=== PATIENT | female | born 1960 | race Caucasian/White ===

== ENCOUNTER → 2018-03-11 08:47 | Outpatient (CLI) | payer BC, SELFPAY ==
--- NOTE | 2018-03-11 08:49 | BI_ITS ---
MAMMOGRAPHY - BILATERAL SCREENING REASON FOR EXAM: Female, 57 years old. Routine annual screening examination. PERTINENT HISTORY: Non-contributory. TECHNIQUE: Digital bilateral breast brandon (3D mammographic acquisition) in the CC and MLO projections. 2-D mediolateral oblique (MLO) and craniocaudad (CC) views of both breasts were obtained. CAD: Full Field Digital Mammography with Computer Added Detection was performed. COMPARISON: Comparison is made with prior outside examination dated February 05, 2017. FINDINGS: Breast Composition: There are scattered areas of fibroglandular density. There are no dominant masses or suspicious calcifications. No other significant abnormalities are identified. There has been no significant change since the prior study. BI/SCREENING MAMM (CAD), BILAT IMPRESSION: Stable bilateral screening mammogram. Yearly follow-up mammogram recommended. (A) ASSESSMENT CATEGORY: BIRADS Category 1: Negative. A letter regarding these results will be sent to the patient by the facility within 30 days. Approximately 10% of breast cancers are not detected by mammography. A normal mammogram should not delay biopsy of a clinically suspicious abnormality. [id number] Electronically Signed: Marek Hagan MD at 9:50 EDT Tel [phone], Service support ,
[2018-03-16 14:18] LABS: HPV APTIMA, High Risk Negative (Negative)
== END ==
PROVIDERS: Family Provider Family Medicine; PCP Family Medicine; Visit Provider Nurse Practitioner Women's Health
DX: Z12.31 Encounter for screening mammogram for malignant neoplasm of breast (principal); Z12.4 Encounter for screening for malignant neoplasm of cervix
CPT/HCPCS: 77063; 77067; 88175; G0145

== ENCOUNTER → 2019-03-17 09:20 | Outpatient (CLI) | payer BC, SELFPAY ==
[2019-03-17 09:03] VITALS: BMI 27.4
--- NOTE | 2019-03-17 09:28 | BI_ITS ---
MAMMOGRAPHY - BILATERAL SCREENING REASON FOR EXAM: Female, 58 years old. Routine annual screening examination. PERTINENT HISTORY: Non-contributory. TECHNIQUE: Digital bilateral breast maria esther (3D mammographic acquisition) in the CC and MLO projections. 2-D mediolateral oblique (MLO) and craniocaudad (CC) views of both breasts were obtained. CAD: Full Field Digital Mammography with Computer Added Detection was performed. COMPARISON: Comparison is made with prior study dated March 11, 2018. FINDINGS: Breast Composition: There are scattered areas of fibroglandular density. There are no dominant masses or suspicious calcifications. Stable small bilateral axillary lymph nodes. No other significant abnormalities are identified. There has been no significant change since the prior study. BI/SCREEN MAMM (CAD) W/MARIA ESTHER BILAT IMPRESSION: Stable bilateral screening mammogram. Yearly follow-up mammogram recommended. (A) ASSESSMENT CATEGORY: BIRADS Category 2: Benign. A letter regarding these results will be sent to the patient by the facility within 30 days. Approximately 10% of breast cancers are not detected by mammography. A normal mammogram should not delay biopsy of a clinically suspicious abnormality. [id number] Electronically Signed: Marek Hagan, at 11:22 EDT , Service support ,
== END ==
PROVIDERS: Family Provider Family Medicine; PCP Family Medicine; Referring Provider Nurse Practitioner Women's Health; Visit Provider Nurse Practitioner Women's Health
DX: Z12.31 Encounter for screening mammogram for malignant neoplasm of breast (principal)
CPT/HCPCS: 77063; 77067

== ENCOUNTER → 2020-04-26 07:32 | Outpatient (CLI) | payer BC, SELFPAY ==
[2019-03-17 09:03] VITALS: BMI 27.4
--- NOTE | 2020-04-26 07:32 | BI_ITS ---
MAMMOGRAPHY - BILATERAL SCREENING REASON FOR EXAM: Female, 59 years old. Routine annual screening examination. PERTINENT HISTORY: Non-contributory. TECHNIQUE: Digital bilateral breast maria esther (3D mammographic acquisition) in the CC and MLO projections. 2-D mediolateral oblique (MLO) and craniocaudad (CC) views of both breasts were obtained. CAD: Full Field Digital Mammography with Computer Added Detection was performed. COMPARISON: Comparison is made with prior examination dated March 19, 2019 and March 11, 2018. FINDINGS: Breast Composition: There are scattered areas of fibroglandular density. There are no dominant masses or suspicious calcifications. Stable benign-appearing bilateral axillary lymph nodes. No other significant abnormalities are identified. There has been no significant change since the prior study. BI/SCREEN MAMM (CAD) W/MARIA ESTHER BILAT IMPRESSION: Stable bilateral screening mammogram. Yearly follow-up mammogram recommended. (A) ASSESSMENT CATEGORY: BIRADS Category 2: Benign. A letter regarding these results will be sent to the patient by the facility within 30 days. Approximately 10% of breast cancers are not detected by mammography. A normal mammogram should not delay biopsy of a clinically suspicious abnormality. [id number] Electronically Signed: Marek Hagan, at 8:25 EDT , Service support ,
== END ==
PROVIDERS: PCP Family Medicine; Referring Provider Nurse Practitioner Women's Health; Visit Provider Nurse Practitioner Women's Health
DX: Z12.31 Encounter for screening mammogram for malignant neoplasm of breast (principal)
CPT/HCPCS: 77063; 77067

== ENCOUNTER → 2021-04-30 07:31 | Outpatient (CLI) | payer BC, SELFPAY ==
[2020-04-26 08:20] VITALS: BMI 27.4
--- NOTE | 2021-04-30 07:33 | BI_ITS ---
MAMMOGRAPHY - BILATERAL SCREENING REASON FOR EXAM: Female, 60 years old. Routine annual screening examination. PERTINENT HISTORY: Non-contributory. TECHNIQUE: Digital bilateral breast maria esther (3D mammographic acquisition) in the CC and MLO projections. 2-D mediolateral oblique (MLO) and craniocaudad (CC) views of both breasts were obtained. CAD: Full Field Digital Mammography with Computer Added Detection was performed. COMPARISON: Comparison is made with prior study dated 04/26/2020 and 03/17/2019. FINDINGS: Breast Composition: There are scattered areas of fibroglandular density. There are no dominant masses or suspicious calcifications. Stable small benign-appearing bilateral axillary lymph nodes. No other significant abnormalities are identified. There has been no significant change since the prior study. BI/SCRN MAMM (CAD)W/MARIA ESTHER BILAT IMPRESSION: Stable bilateral screening mammogram. Yearly follow-up mammogram recommended. (A) ASSESSMENT CATEGORY: BIRADS Category 2: Benign. A letter regarding these results will be sent to the patient by the facility within 30 days. Approximately 10% of breast cancers are not detected by mammography. A normal mammogram should not delay biopsy of a clinically suspicious abnormality. [id number] Electronically Signed: Marek Hagan MD at 9:34 EDT , Service support ,
== END ==
PROVIDERS: PCP Family Medicine; Referring Provider Nurse Practitioner Women's Health; Visit Provider Nurse Practitioner Women's Health
DX: Z12.31 Encounter for screening mammogram for malignant neoplasm of breast (principal)
CPT/HCPCS: 77063; 77067

== ENCOUNTER → 2022-05-19 | Outpatient (CLI) | payer BC, SELFPAY ==
--- NOTE | 2022-05-19 07:26 | BI_ITS ---
MAMMOGRAPHY - BILATERAL SCREENING REASON FOR EXAM: Female, 62 years old. Routine annual screening examination. PERTINENT HISTORY: Non-contributory. TECHNIQUE: Digital bilateral breast maria esther (3D mammographic acquisition) in the CC and MLO projections. 2-D mediolateral oblique (MLO) and craniocaudad (CC) views of both breasts were obtained. CAD: Full Field Digital Mammography with Computer Added Detection was performed. COMPARISON: Comparison is made with prior study dated 04/30/2021 and 04/26/2020. FINDINGS: Breast Composition: There are scattered areas of fibroglandular density. There are no dominant masses or suspicious calcifications. Stable small benign-appearing bilateral axillary lymph nodes. No other significant abnormalities are identified. There has been no significant change since the prior study. BI/SCRN MAMM (CAD)W/MARIA ESTHER BILAT IMPRESSION: Stable bilateral screening mammogram. Yearly follow-up mammogram recommended. (A) ASSESSMENT CATEGORY: BIRADS Category 2: Benign. A letter regarding these results will be sent to the patient by the facility within 30 days. Approximately 10% of breast cancers are not detected by mammography. A normal mammogram should not delay biopsy of a clinically suspicious abnormality. [id number] Electronically Signed: Marek Hagan MD at 8:32 EDT ,
[2022-05-19 09:33] LABS: Cholesterol 201 mg/dL (200); Glucose 89 mg/dL (74-106); High Density Lipoprotein 73 mg/dL; Thyroid Stim Hormone (TSH) 2.11 uIU/mL (0.358-3.74); Triglycerides 97 mg/dL; Very Low Density Lipoprotein 19 mg/dL (5-40)
[2022-05-19 10:14] LABS: Vitamin D,25 Hydroxy 27.8 ng/mL
== END | disposition home or self-care (01) ==
PROVIDERS: Referring Provider Nurse Practitioner Women's Health; Visit Provider Nurse Practitioner Women's Health
DX: Z12.31 Encounter for screening mammogram for malignant neoplasm of breast (principal); Z13.21 Encounter for screening for nutritional disorder; Z13.29 Encounter for screening for other suspected endocrine disorder
CPT/HCPCS: 36415; 77063; 77067; 80061; 82306; 82947; 84443

== ENCOUNTER → 2023-05-25 | Outpatient (CLI) | payer BC, SELFPAY ==
--- NOTE | 2023-05-25 08:02 | BI_ITS ---
MAMMOGRAPHY - BILATERAL SCREENING REASON FOR EXAM: Female, 63 years old. Routine annual screening examination. PERTINENT HISTORY: Non-contributory. TECHNIQUE: Digital bilateral breast maria esther (3D mammographic acquisition) in the CC and MLO projections. 2-D mediolateral oblique (MLO) and craniocaudad (CC) views of both breasts were obtained. CAD: Full Field Digital Mammography with Computer Added Detection was performed. COMPARISON: Comparison is made with prior study dated May 19, 2022 and April 30, 2021. FINDINGS: Breast Composition: There are scattered areas of fibroglandular density. There are no dominant masses or suspicious calcifications. Stable small benign-appearing bilateral axillary lymph nodes. No other significant abnormalities are identified. There has been no significant change since the prior study. BI/SCRN MAMM (CAD)W/MARIA ESTHER BILAT IMPRESSION: Stable bilateral screening mammogram. Yearly follow-up mammogram recommended. (A) ASSESSMENT CATEGORY: BIRADS Category 2: Benign. A letter regarding these results will be sent to the patient by the facility within 30 days. Approximately 10% of breast cancers are not detected by mammography. A normal mammogram should not delay biopsy of a clinically suspicious abnormality. [id number] Electronically Signed: Marek Hagan MD at 9:39 EDT ,
[2023-05-25 10:16] LABS: Vitamin D,25 Hydroxy 34.9 ng/mL
[2023-05-25 10:21] LABS: Cholesterol 211 mg/dL (200); Glucose 95 mg/dL (74-106); High Density Lipoprotein 79 mg/dL; Thyroid Stim Hormone (TSH) 2.31 uIU/mL (0.358-3.74); Triglycerides 51 mg/dL; Very Low Density Lipoprotein 10 mg/dL (5-40)
[2023-05-29 15:08] LABS: HPV APTIMA, High Risk Negative (Negative)
== END | disposition home or self-care (01) ==
PROVIDERS: Referring Provider Nurse Practitioner Women's Health; Visit Provider Nurse Practitioner Women's Health
DX: Z12.31 Encounter for screening mammogram for malignant neoplasm of breast (principal); Z12.4 Encounter for screening for malignant neoplasm of cervix; Z78.0 Asymptomatic menopausal state; Z13.1 Encounter for screening for diabetes mellitus; Z13.29 Encounter for screening for other suspected endocrine disorder; Z13.21 Encounter for screening for nutritional disorder; Z13.220 Encounter for screening for lipoid disorders
CPT/HCPCS: 36415; 77063; 77067; 80061; 82306; 82947; 84443; 87624; 88175; G0145

== ENCOUNTER 2023-08-21 09:23 | Day surgery (SDC) | payer BC, SELFPAY ==
[2023-08-21 09:46] VITALS: BP 129/78; PULSE 70; RESP 18; TEMP 36.4; O2SAT 97; BMI 25.2
[2023-08-21] MEDS: Lactated Ringers 1,000 ML 15 ML IV (09:55)
--- NOTE | 2023-08-21 10:37 | HP.PCM_ITS ---
HPI - General HPI Narrative EMMY HUTCHINS, is a 63 F who presents for screening colonoscopy. She has never had a colonoscopy in the past. She denies any abdominal pain or blood in the stool. She has no family history of colon cancer. PFSH Medical History (Updated 08/17/23 @ 09:59 by Hilda Mckenzie) ADD (attention deficit disorder) Former smoker Hx of vaginal delivery Post-menopausal Wears glasses Home Medications cholecalciferol (vitamin D3) 25 mcg (1,000 unit) capsule 25 mcg PO .QOD 07/14/23 [History Last Taken Unknown] Allergy/AdvReac Type Severity Reaction Status Date / Time No Known Allergies Allergy Verified 08/21/23 09:45 Family History Mother Stomach disorder intenstine burst. infection GERD (gastroesophageal reflux disease) Cervical cancer Grandfather Cancer Surgical History (Updated 08/17/23 @ 09:57 by Hilda Mckenzie) Hx of tonsillectomy No pertinent past surgical history Social History household members: spouse current occupational status: employed current occupation: realtor Smoking Status: Former smoker Electronic Cigarette Use: not used alcohol intake: current alcohol intake frequency: holidays/special occasions only details: social substance use type: does not use caffeine: Yes what type of physical activity do you participate in: walking seatbelt use: always do you feel safe at home: Yes additional social history: [employer] Patient is a Realtor Past Medical/Surgical History Planned Operation Planned Operative Procedure/s: COLONOSCOPY-OA Previous Hospitalizations/Surgeries HX Hospitalizations: No Any Problems With Anesthesia: No You/Your Family Experience Fever (Hyperthermia) With Anes: No Cholinesterase deficiency: No Cardiovascular Hx Hypertension: No Respiratory Hx Sleep Apnea: No Hx Respiratory Tract Infection/Cold (presently): No Do You Snore Loudly (louder than talking or can be heard): Yes Do You Often Feel Tired/ Fatigued/ Sleepy Dring Daytime?: No Has Anyone Observed You Stop Breathing During Sleep?: No Result (for STOP score): Negative Smoking Status: Former smoker Neurological Does patient have nerve stimulator: No Reproduction : No Miscellaneous Recent Exposure to Contagious Disease: No Allergies No Known Allergies Allergy (Verified 08/21/23 09:45) Discharge Is Pt Admitted From a Half-Way, or a Longterm: No After D/C, Where Do you Plan to Go: Return Home Vital Signs Vital Signs Vital Signs: 08/21/23 09:46 08/21/23 09:46 Temperature 97.6 F L Temperature Source Temporal Pulse Rate 70 Respiratory Rate 18 Respiratory Pattern Normal Blood Pressure 129/78 H Blood Pressure Mean 95 Blood Pressure Source Monitor Blood Pressure Position Sitting Blood Pressure Location Right Arm Pulse Ox 97 Oxygen Delivery Method Room Air Weight Weight: 165 lb 9.074 oz Body Mass Index (BMI) 25.2 Physical Exam Const alert and oriented x3 HEENT normocephalic Eyes PERRL Resp normal respiratory effort and normal air movement Cardio regular rate and regular rhythm GI soft to palpation, non-tender and non-distended Extremity normal to inspection Assessment & Plan Assessment/Plan (1) Encounter for screening for malignant neoplasm of colon: PLAN: I explained endoscopy in detail to the patient. I explained the risks including but not limited to stroke or heart attack with anesthesia, perforation of the GI tract, bleeding, infection. I explained that any of these could necessitate further emergency surgery. The patient understands and all questions were answered sufficiently. The patient wishes to proceed with procedure. Deandre Doe MD Pager: [facility] [address] [place] [address], [address] [place] [address] Office: Surgery Risks - Colonoscopy Risks Include but are not Limited To: Risks include but are not limited to: Bleeding, perforation requiring further surgery, inability to complete colonoscopy requiring barium enema.
[2023-08-21 10:40] VITALS: BP 123/63; BP 129/75; PULSE 65; RESP 18; TEMP 36.6; O2SAT 99
--- NOTE | 2023-08-21 10:44 | OP.CCLET_ITS ---
08/21/2023 No Primary Care Physician Re : Colonoscopy procedure for Kathie Brice Dear Care Physician This procedure was performed on Monday, August 21, 2023. My impressions and recommendations are as follows: Impressions : - The entire examined colon is normal on direct and retroflexion views. - No specimens collected. Recommendations : - Discharge patient to home. - Resume previous diet. - Continue present medications. - Repeat colonoscopy in 10 years for screening purposes. My findings are described in the full procedure note, which is enclosed. If I can be of further assistance, please feel free to contact me at Doctor phone number(s): , Work: . Sincerely, Deandre Doe MD 08/21/2023 10:44:21 AM This report has been signed electronically.
--- NOTE | 2023-08-21 10:44 | OP.COLON_ITS ---
Patient Name: Kathie rBice Procedure Date: 08/21/2023 10:17 AM Date of : 1960 Age: 63 Procedure: Colonoscopy Indications: Screening for colorectal malignant neoplasm Providers: Deandre Doe MD Medicines: Monitored Anesthesia Care Patient Profile: This is a 63 year old female. Refer to note in patient chart for documentation of history and physical. Last Colonoscopy: none. The patient's first colonoscopy is today. Complications: No immediate complications. Procedure: Pre-Anesthesia Assessment: - Prior to the procedure, a History and Physical was performed, and patient medications and allergies were reviewed. The patient's tolerance of previous anesthesia was also reviewed. The risks and benefits of the procedure and the sedation options and risks were discussed with the patient. All questions were answered, and informed consent was obtained. Prior Anticoagulants: The patient has taken no anticoagulant or antiplatelet agents. After reviewing the risks and benefits, the patient was deemed in satisfactory condition to undergo the procedure. After I obtained informed consent, the scope was passed under direct vision. Throughout the procedure, the patient's blood pressure, pulse, and oxygen saturations were monitored continuously. The Colonoscope was introduced through the anus and advanced to the cecum, identified by appendiceal orifice and ileocecal valve. The colonoscopy was performed without difficulty. The patient tolerated the procedure well. The quality of the bowel preparation was good. The ileocecal valve, appendiceal orifice, and rectum were photographed. Scope In: 10:22:48 AM Scope Withdrawal Time 0 hours 6 minutes 11 seconds Scope Out: 10:35:19 AM Total Procedure Duration Time 0 hours 12 minutes 31 seconds Findings: The entire examined colon appeared normal on direct and retroflexion views. Impression: - The entire examined colon is normal on direct and retroflexion views. - No specimens collected. Recommendation: - Discharge patient to home. - Resume previous diet. - Continue present medications. - Repeat colonoscopy in 10 years for screening purposes. Procedure Code(s): --- Professional --- 93503, Colonoscopy, flexible; diagnostic, including collection of specimen(s) by brushing or washing, when performed (separate procedure) Diagnosis Code(s): --- Professional --- Z12.11, Encounter for screening for malignant neoplasm of colon CPT copyright 2021 [employer]. All rights reserved. The codes documented in this report are preliminary and upon escrow clerk review may be revised to meet current compliance requirements. Deandre Doe MD 08/21/2023 10:44:21 AM This report has been signed electronically. Number of Addenda: 0 Note Initiated On: 08/21/2023 10:17 AM
[2023-08-21 10:45] VITALS: BP 100/62; BP 129/75; PULSE 69; RESP 18; O2SAT 99
[2023-08-21 10:50] VITALS: BP 106/61; BP 129/75; PULSE 63; RESP 18; O2SAT 99
[2023-08-21 10:55] VITALS: BP 129/75; BP 96/71; PULSE 60; RESP 18; TEMP 36.8; O2SAT 100
[2023-08-21 11:03] VITALS: BP 129/75
== END 2023-08-21 11:19 | disposition home or self-care (01) ==
LOC: EN 09:26 → AC 09:27
PROVIDERS: Visit Provider Surgery
PROC: 0DJD8ZZ Inspection of Lower Intestinal Tract, Via Natural or Artificial Opening Endoscopic (ICD-10-PCS; CPT 45378; principal; 2023-08-21 10:25)
DX: Z12.11 Encounter for screening for malignant neoplasm of colon (principal); Z87.891 Personal history of nicotine dependence
CPT/HCPCS: 45378; J7120; J2405

== ENCOUNTER → 2024-06-02 | Outpatient (CLI) | payer BC, SELFPAY ==
--- NOTE | 2024-06-02 08:49 | BI_ITS ---
MAMMOGRAPHY - BILATERAL SCREENING 3-D TOMOSYNTHESIS REASON FOR EXAM: Female, 64 years old. screening PERTINENT HISTORY: No significant family history. TECHNIQUE: 2-D mammograms and 3-D Tomosynthesis of the breast (s) were performed. CAD was performed. COMPARISON: 05/25/2023 FINDINGS: The breast composition is composed of scattered fibroglandular density. Scattered benign calcifications are seen. No dense spiculated masses or suspicious microcalcifications are identified. No architectural distortion is identified. There is no skin thickening or retraction. There has been no significant change since the prior study. BI/SCRN MAMM (CAD)W/MARIA ESTHER BILAT IMPRESSION: No mammographic signs of malignancy. Routine yearly mammograms recommended. ASSESSMENT CATEGORY: BIRADS Category 1: Negative. A letter regarding these results will be sent to the patient by the facility within 30 days. FOLLOW UP RECOMMENDATION: Yearly follow up mammogram recommended. (A) Approximately 10% of breast cancers are not detected by mammography. A normal mammogram should not delay biopsy of a clinically suspicious abnormality. Electronically Signed: Cedric Bull MD at 13:25 EDT ,
[2024-06-02 09:45] LABS: Vitamin D,25 Hydroxy 44.6 ng/mL
[2024-06-02 09:50] LABS: ALB/GLOB Ratio 1.3 RATIO (0.9-2.4); AST(SGOT) 14 U/L (15-37); Alanine Aminotransfer ALT/SGPT 15 U/L (13-56); Albumin, Serum 4.3 g/dL (3.2-5.0); Alkaline Phosphatase 74 U/L (45-117); Anion Gap 7 (5-15); BUN 8 mg/dL (7-18); Calcium,Total 9.3 mg/dL (8.5-10.1); Chloride 109 mmol/L (98-107); Cholesterol 214 mg/dL (200); Creatinine, Serum 0.88 mg/dL (0.55-1.02); EST Glomerular Filtration Rate 69 mL/min (>60); Est Glom Filt Rate - Afr Amer 83 mL/min (>60); Globulin 3.3 g/dL (2.2-4.2); Glucose 94 mg/dL (74-106); High Density Lipoprotein 85 mg/dL; Protein, Total 7.6 g/dL (6.4-8.2); Sodium Level 141 mmol/L (136-145); T4 Free Direct 0.99 ng/dL (0.76-1.46); Thyroid Stim Hormone (TSH) 2.38 uIU/mL (0.358-3.74); Triglycerides 72 mg/dL; Very Low Density Lipoprotein 14 mg/dL (5-40)
[2024-06-02 10:37] LABS: Hemoglobin A1c 5.4 % (3.8-5.6)
== END | disposition home or self-care (01) ==
PROVIDERS: Referring Provider Nurse Practitioner Women's Health; Visit Provider Nurse Practitioner Women's Health
DX: Z12.31 Encounter for screening mammogram for malignant neoplasm of breast (principal); R03.0 Elevated blood-pressure reading, without diagnosis of hypertension; Z13.29 Encounter for screening for other suspected endocrine disorder; Z13.21 Encounter for screening for nutritional disorder; Z13.220 Encounter for screening for lipoid disorders; Z13.1 Encounter for screening for diabetes mellitus
CPT/HCPCS: 36415; 77063; 77067; 80053; 80061; 82306; 83036; 84439; 84443

== ENCOUNTER → 2024-09-27 | Outpatient (CLI) | payer BC, SELFPAY ==
--- NOTE | 2024-09-27 12:16 | US_ITS ---
STUDY: THYROID ULTRASOUND REASON FOR EXAM: Female, 64 years old. Enlarged thyroid TECHNIQUE: Ultrasound evaluation of the thyroid was performed with real-time and static davalos-scale imaging. COMPARISON: None. FINDINGS: RIGHT LOBE: The right lobe of the thyroid gland measures 3.9 cm x 1.4 cm x 1.2 cm. There is a homogeneous echotexture. There are no demonstrated solid, cystic or complex lesions. LEFT LOBE: The left lobe of the thyroid gland measures 3.4 cm x 1.3 cm x 0.8 cm. There is a homogeneous echotexture. There are no demonstrated solid, cystic or complex lesions. ISTHMUS: The isthmus measures 2 mm. The regional lymph nodes are normal. US/Thyroid IMPRESSION: Normal ultrasound examination of the thyroid. Electronically Signed: Marek Hagan MD at 9:55 EST ,
== END | disposition home or self-care (01) ==
PROVIDERS: PCP Internal Medicine; Referring Provider Internal Medicine; Visit Provider Internal Medicine
DX: E04.9 Nontoxic goiter, unspecified (principal)
CPT/HCPCS: 76536

== ENCOUNTER → 2025-06-05 | Outpatient (CLI) | payer BC, SELFPAY ==
--- OUTSIDE RECORDS SUMMARY | 2025-06-05 07:32 | XMS RPT_ITS | CCD ---
Author Organization [facility] Care Team Providers Care Loss Prevention Supervisor Name Role Phone Artem DIRECTOR CORRECTIONAL AGENCY, DIRECTOR CORRECTIONAL AGENCY-C Alejandra Attending Provider Care Physician, No Primary Primary Care Provider Unavailable Care Physician, No Primary Referring Provider Un available Care Physician, No Primary Primary Care Provider Unavailable Care Physician, No Primary Referring Provider Un available Artem DIRECTOR CORRECTIONAL AGENCY, RAJENDRA-C Alejandra Attending Provider [phone] Judy Gastelum Attending Provider Unavailable Dr. Deandre Doe Attending Provider [phone] Dr. Deandre Doe Other Provider Artem DIRECTOR CORRECTIONAL AGENCY, RAJENDRA-Dallas Dolan Other Provider [phone] [facility], Oksana Attending Unavailable Care Physician, No Primary Primary Care Unava ilable Care Physician, No Primary Referring Unava ilable [facility], Oksana Referring Unavailable Artem DIRECTOR CORRECTIONAL AGENCYAlejandra Attending Unavailable [facility], Oksana Primary Care Unavailable [facility], Oksana Primary Care Unavailable Orestes, Oksana Attending Unavailable [facility], Oksana Referring Unavailable Artem DIRECTOR CORRECTIONAL AGENCYAlejandra Attending Unavailable Artem DIRECTOR CORRECTIONAL AGENCYAlejandra Referring Unavailable Orestes, Oksaan Primary Care Unavailable Medications Current Medications Medication Drug Class(es) Dates Sig (Normalized) Sig (Original) cholecalciferol 0.025 mg oral capsule (1 source) Vitamin D Start: 07-14-2023 take 25 ug by mouth every other day Cholecalciferol (Vitamin D3) Active 25 MCG PO .QOD July 14, 2023 12:00am Problems Problem Classification Problem Date Documented Da te Episodic/Chronic Menopausal disorders (3 sources) Atrophic vaginitis; Translations: [Postmenopausal atrophic vaginitis] 05-25-2023 Chronic Other screening for suspected conditions (not mental disorders or infectious disease) (3 sources) Patient encounter status; Translations: [Encounter for screening for malignant neoplasm of colon] Onset: 06-02-2025 08-20-2022 Episodic Thyroid disorders (1 source) Nontoxic goiter, unspecified; Translations: [Nontoxic goiter, unspecified] Onset: 10-27-2024 Chronic Results Test Name Value Interpretation Reference Range Facility Thyroidon 09-27-2024 Thyroid [facility] [address] [place], [place] [address] Thyroid MR#: [id number] Acct: [id number] Name: EMMY HUTCHINS Rep #: [id number] : 1960 F 64 From: Marek dunn MD PCP: Dr. Oksana Carlisle MD Status: REG CLI Study: Thyroid Date of Exam: 09/27/24 Exam# [id number] Ordering Dr: Oksana Carlisle MD [id number] STUDY: THYROID ULTRASOUND REASON FOR EXAM: Female, 64 years old. Enlarged thyroid TECHNIQUE: Ultrasound evaluation of the thyroid was performed with real-time and static davalos-scale imaging. COMPARISON: None. FINDINGS: RIGHT LOBE: The right lobe of the thyroid gland measures 3.9 cm x 1.4 cm x 1.2 cm. There is a homogeneous echotexture. There are no demonstrated solid, cystic or complex lesions. LEFT LOBE: The left lobe of the thyroid gland measures 3.4 cm x 1.3 cm x 0.8 cm. There is a homogeneous echotexture. There are no demonstrated solid, cystic or complex lesions. ISTHMUS: The isthmus measures 2 mm. The regional lymph nodes are normal. US/Thyroid IMPRESSION: Normal ultrasound examination of the thyroid. Electronically Signed: Marek Hagan MD at 9:55 EST , CC: Dr. Oksana Carlisle MD Extract Mixer: Signed Normal [facility] Internal Medicine Office Vis thelma 09-01-2024 Internal Medicine Office Visit [facility] [address] [place] [address] [place] [address] OFFICE VISIT Date of Service: 09/05/24 MR#: [id number] Acct: [id number] Name: EMMY HUTCHINS Rep #: [id number] : 1960 Provider: Dr. Oksana salas MD Age/Sex: 64/F Location[place] [facility] Status: Signed Intake Vital Signs 06/02/24 08:12 06/08/24 09:45 09/05/24 07:50 Height 5 ft 8 in 5 ft 8 in 5 ft 8 in Weight: 155 lb 4 oz BMI 23.6 BP 124/70 H Blood Pressure Location Lt brachial Position Sitting Respiration 16 Pulse 59 L Pulse Source Monitor Temp 97.1 F L Temp Source Temporal Pulse Oximetry (%) 99 Oxygen Delivery Method room air Intake Visit Reasons: FOLLOW UP/MONITORING BP PER ALEJANDRA TITUS Chief Complaint: bp monitoring Fertilizer Applicator Required: No Accompanied by: Self Is patient in pain?: No Allergies No Known Allergies Allergy (Verified 09/05/24 07:47) Medications ???Medication ???Instructions ???Recorded ???Confirmed ???Type NK 09/05/24 09/05/24 History PFSH Medical History Post-menopausal Wears glasses Former smoker Hx of vaginal delivery ADD (attention deficit disorder) Surgical History Hx of tonsillectomy No pertinent past surgical history Family History Mother Stomach disorder intenstine burst. infection GERD (gastroesophageal reflux disease) Cervical cancer Grandfather Cancer Social History (Updated 09/05/24 @ 07:[address] Oksana Carlisle MD) household members: spouse current occupational status: employed current occupation: [employer] Smoking Status: Former smoker pack-years: 4 Electronic Cigarette Use: not used alcohol intake: current alcohol intake frequency: holidays/special occasions only details: social substance use type: does not use caffeine: Yes what type of physical activity do you participate in: walking seatbelt use: always do you feel safe at home: Yes additional social history: [employer] Patient is a Realtor HPI HPI Chief Complaint: bp monitoring Details: EMMY HUTCHINS, is a 64 F who presents to the office today for a well visit. She is up to date on her routine blood work and screening. She does want her flu shot today. She doesn't smoke and doesn't take any prescription medications. She reports she is eating healthy overall and is trying to stay active. The patient saw her OBGYN back in May and was noted to have a slightly elevated blood pressure. Since then, she has been monitoring it at home. She reports that morning, she drank a lot of water and coffee prior to her appointment. She reports since then, she has been monitoring her blood pressure at home. She reports with cutting back on her coffee intake, her readings have been better controlled. She reports it has been in the 132/78 range after her coffee stating she checks it immediately after. She has no questions or concerns at this time. Medications reviewed: Yes Emmy likes to exercises by walking and playing pickleball. They watch their diet for sodium, low fat, and low cholesterol most of the time. List of current specialists seen: OBGYN End of life planning discussed including patient's advanced directive wishes: Discussed. Patient doesn't have one in place. I am willing to follow Emmy's advanced directives PHQ-2/Depression screen They in the past two weeks denies having felt down, depressed, hopeless or with little interest or pleasure in doing things. Functional Ability/Safety Screen 1. Was the patient's time up and go test unsteady or longer than 30 seconds? No 2. Does the patient need help with the phone, transportation, shopping, prepared meals, housework, laundry, medications or managing money? No 3. Does your home have rugs in the hallway, lack of grab bars in the bathroom, lack of handrails on the stairs or have poor lighting? No Hearing evaluation: Normal ROS Const Constitutional: Positive for weight change (19 pound weight loss in last 2 years); No body ache, chills, excessive sweating, fatigue, fever(s), frequent falls, headache(s), snoring, weakness or change in appetite Eyes Eyes: No blurry vision, change in vision, eye pain or Light sensitivity ENT ENT: No abnormal hearing, ear or mastoid pain, tinnitus, nasal congestion, headache(s), neck pain or sore throat Resp Respiratory: No cough, shortness of breath, snoring or wheezing Cardio Cardiology: No chest pain at rest, chest pain with exertion, excessive sweating, dyspnea on exertion, lightheadedness, orthopnea, palpitations or other (no leg swelling) Gastro GI: No abdominal pain, change in bowel habits, constipation, cramping, diarrh (more content not included)... Normal [facility] Basophil percentageOrdered B y: Alejandra Titus on 05-25-2023 Cholesterol [Mass/Vol] 211 mg/dL <200 [facility] Comment on above: <200 mg/dL Desirable 200-240 mg/dL Borderline >240 mg/dL High Risk Glucose [Mass/Vol] 95 mg/dL 74-106 [facility] Triglyceride [Mass/Vol] 51 mg/dL <199 [facility] Comment on above: The drugs N-Acetylcy steine and Metamizole may falsely depress this assay.Serum Triglycerides Reference Interval Normal <150 mg/dL Borderline high 150 - 199 mg/dL High 200 - 499 mg/dL Very High > or = 500 mg/dL Cervical or vagninal specime n microscopic examination by cytology stain (reported asOrdered By: Alejandra Titus on 05-25-2023 Cytology report Cyto stain Doc (Cvx/Vag) Comment . [facility] Comment on above: The Pap smear is a s creening test designed to aid in thedetection of premalignant and malignant conditions of theuterine cervix. It is not a diagnostic procedure andshould not be used as the sole means of detecting cervicalcancer. Both false-positive and false-negative reports dooccur. Detection in cervical specim en of any of human papilloma virus (HPV) 16, 18, 31, 33,Ordered By: Alejandra Titus on 05-25-2023 HPV 16+18+31+33+35+39+45+51 +52+56+58+59+66+68 DNA Probe+sig amp Ql (Cvx) Negative Negative [facility] Comment on above: This nucleic acid am plification test detects fourteen high-risk HPV types (16,18,31,33,35,39,45,51,52,56,58,59,66,68)without differentiation. Laboratory - CytologyOrdered By: Alejandra Titus on 05-25-2023 Park Recreation Manager Cyto stain Nom (Cvx/Vag) [ID] Comment . [facility] Comment on above: Darlene Ortega, [employer] hnologist (ASCP) Laboratory - Miscellaneous t estsOrdered By: Alejandra Titus on 05-25-2023 Service comment (Unsp spec) [Interp] Comment . [facility] Comment on above: This liquid based Th inPrep(R) pap test was screened withthe use of an image guided system. Service comment (Unsp spec) [Interp] . . [facility] Liquid-based cerv Pap + CT/G C by BRODIE w reflex to high-risk HPV for ASCUSOrdered By: Alejandra Titus on 05-25-2023 Cytology report Cyto stain.thin prep Doc (Cvx/Vag) Comment . [facility] Comment on above: Criteria not met, HP V Genotype not performed.Performed at: [facility] - [facility] [address] [id number] Director: Priya Chilel MD, Phone: [phone] at: =G - [facility] [address] [id number] Director: Priya Chilel MD, Phone: [phone] No Panel InformationOrdered By: Alejandra Titus on 05-25-2023 Pathology report final diagnosis Narrative Comment . [facility] Comment on above: NEGATIVE FOR INTRAEP ITHELIAL LESION OR MALIGNANCY.CELLULAR CHANGES ASSOCIATED WITH ATROPHY ARE PRESENT. Thyroid Stimulating Hormone (TSH) 2.31 uIU/mL 0.358-3.74 [facility] Vitamin D 25-Hydroxy 34.9 ng/mL [facility] Comment on above: Vitamin D 25(OH) Sta tus Range Deficiency <20 ng/mL (50nmol/L) Insufficiency 20 - 30 ng/mL (50 - 75 nmol/L) Sufficiency 30 - 100 ng/mL (75 - 250 nmol/L) Toxicity >100 ng/mL (>250 nmol/L) Serum or plasma cholesterol in HDL measurement (mass/volume)Ordered By: Alejandra Tiuts on 05-25-2023 Cholesterol in HDL [Mass/Vol] 79 mg/dL >40 [facility] Comment on above: The drugs N-Acetylcy steine and Metamizole may falsely depress this assay. Reference Range HDL <40 mg/dL Low HDL Cholesterol HDL >or= 60 mg/dL High HDL Cholesterol Serum or plasma cholesterol in VLDL measurement (mass/volume)Ordered By: Alejandra Titus on 05-25-2023 Cholesterol in VLDL [Mass/Vol] 10 mg/dL 5-40 [facility] Serum or plasma low density lipoprotein (LDL) cholesterol measurement (mass/volume)Ordered By: Alejandra Titus on 05-25-2023 Cholesterol in LDL [Mass/Vol] 122 mg/dL 0-130 [facility] Basophil percentageon 2021 Cholesterol [Mass/Vol] 201 mg/dL <200 [facility] Work Phone: Comment on above: <200 mg/dL Desirable 200-240 mg/dL Borderline >240 mg/dL High Risk Glucose [Mass/Vol] 89 mg/dL 74-106 [facility] Work Phone: Triglyceride [Mass/Vol] 97 mg/dL <199 [facility] Work Phone: Comment on above: The drugs N-Acetylcy steine and Metamizole may falsely depress this assay.Serum Triglycerides Reference Interval Normal <150 mg/dL Borderline high 150 - 199 mg/dL High 200 - 499 mg/dL Very High > or = 500 mg/dL No Panel Informationon 05-19 Thyroid Stimulating Hormone (TSH) 2.11 uIU/mL 0.358-3.74 [facility] Work Phone: Vitamin D 25-Hydroxy 27.8 ng/mL [facility] Work Phone: Comment on above: Vitamin D 25(OH) Sta tus Range Deficiency <20 ng/mL (50nmol/L) Insufficiency 20 - 30 ng/mL (50 - 75 nmol/L) Sufficiency 30 - 100 ng/mL (75 - 250 nmol/L) Toxicity >100 ng/mL (>250 nmol/L) Serum or plasma cholesterol in HDL measurement (mass/volume)on 05-19-2022 Cholesterol in HDL [Mass/Vol] 73 mg/dL >40 [facility] Work Phone: Comment on above: The drugs N-Acetylcy steine and Metamizole may falsely depress this assay. Reference Range HDL <40 mg/dL Low HDL Cholesterol HDL >or= 60 mg/dL High HDL Cholesterol Serum or plasma cholesterol in VLDL measurement (mass/volume)on 05-19-2022 Cholesterol in VLDL [Mass/Vol] 19 mg/dL 5-40 [facility] Work Phone: Serum or plasma low density lipoprotein (LDL) cholesterol measurement (mass/volume)on 05-19-2022 Cholesterol in LDL [Mass/Vol] 109 mg/dL 0-130 [facility] Work Phone: Vital Signs Date Time Vital Sign Value Performing Clinician [place] 08-21-2023 10:55-0400 Body temperature 98.3 [degF] No Primary Care Physician [facility] 08-21-2023 10:55-0400 Diastolic blood pressure 71 mm[Hg] No Primary Care Physician [facility] 08-21-2023 10:55-0400 Heart rate 60 /min No Primary Care Physician [facility] 08-21-2023 10:55-0400 Respiratory rate 18 /min No Primary Care Physician [facility] 08-21-2023 10:55-0400 SaO2% (BldA) [Mass fraction] 100 % No Primary Care Physician [facility] 08-21-2023 10:55-0400 Systolic blood pressure 96 mm[Hg] No Primary Care Physician [facility] 08-21-2023 09:46-0400 Body height 172.72 cm No Primary Care Physician [facility] 08-21-2023 09:46-0400 Body mass index (BMI) [Ratio] 25.2 kg/m2 No Primary Care Physician [facility] 08-21-2023 09:46-0400 Body weight 75.1 kg No Primary Care Physician [facility] 07-14-2023 15:13-0400 Body mass index (BMI) [Ratio] 23.7 kg/m2 No Primary Care Physician [facility] 07-14-2023 15:13-0400 Body weight 70.76 kg No Primary Care Physician [facility] 05-25-2023 08:32-0400 Body mass index (BMI) [Ratio] 24.3 kg/m2 No Primary Care Physician [facility] 05-25-2023 08:32-0400 Body weight 72.74 kg No Primary Care Physician [facility] 05-25-2023 08:32-0400 Diastolic blood pressure 72 mm[Hg] No Primary Care Physician [facility] 05-25-2023 08:32-0400 Systolic blood pressure 118 mm[Hg] No Primary Care Physician [facility] 05-19-2022 08:06-0400 Body height 177.8 cm DIRECTOR CORRECTIONAL AGENCY-C Alejandra Garfield DIRECTOR CORRECTIONAL AGENCY Work Phone: [facility] Work Phone: 05-19-2022 08:06-0400 Body mass index (BMI) [Ratio] 25 kg/m2 DIRECTOR CORRECTIONAL AGENCY-C Alejandra Artem DIRECTOR CORRECTIONAL AGENCY Work Phone: [facility] Work Phone: 05-19-2022 08:06-0400 Body weight 79.15 kg DIRECTOR CORRECTIONAL AGENCY-C Alejandra Artem DIRECTOR CORRECTIONAL AGENCY Work Phone: [facility] Work Phone: 05-19-2022 08:06-0400 Diastolic blood pressure 70 mm[Hg] DIRECTOR CORRECTIONAL AGENCY-C Alejandra Artem DIRECTOR CORRECTIONAL AGENCY Work Phone: [facility] Work Phone: 05-19-2022 08:06-0400 Systolic blood pressure 134 mm[Hg] DIRECTOR CORRECTIONAL AGENCY-C Alejandra Artem DIRECTOR CORRECTIONAL AGENCY Work Phone: [facility] Work Phone: Encounters Encounter Date Encounter Type Care Provider Facility Start: 06-05-2025 ambulatory Oksana [facility] Facility :[facility] Start: 09-27-2024 End: 09-27-2024 ambulatory Oksana Orestes Facility:[facility] Start: 09-05-2024 End: 09-05-2024 ambulatory Oksana Orestes Facility:[facility] Start: 08-21-2023 Non-patient / Non-visit No Shirley Zhang Physician [facility] Start: 08-21-2023 End: 08-21-2023 Admission to same day surgery center No Primary Care Physician [facility] Work Phone: Start: 08-21-2023 End: 08-21-2023 ambulatory No Primary Care Physician [facility] Work Phone: Start: 07-14-2023 Non-patient / Non-visit No Shirley Zhang Physician [facility] Work Phone: Start: 05-25-2023 End: 05-25-2023 Patient encounter procedure No Primary Care Physician [facility] Work Phone: Start: 05-19-2022 End: 05-19-2022 Patient encounter procedure DIRECTOR CORRECTIONAL AGENCY-[place] Titus DIRECTOR CORRECTIONAL AGENCY Work Phone: [facility] Procedures Date Procedure Procedure Detail Performing Clinician Start: 08-21-2023 Colonoscopy No Primary Care Physician Start: 05-25-2023 Screening mammography N o Primary Care Physician Start: 05-19-2022 Screening mammography N P-C Alejandra Titus DIRECTOR CORRECTIONAL AGENCY Work Phone: Plan of Treatment Date Care Activity Detail Author Start: 08-21-2023 Patient discharge [facility] Start: 05-19-2022 Patient referral [facility] Work Phone: Patient referral [facility] Work Phone: Immunizations Immunization Date Immunization Notes Care Provider Fa cility 08-16-2021 Covid (Pfizer) No Primary Ca re Physician [facility] 02-04-2021 Covid ([employer]jun [employer]) No Primary Care Physician [facility] Payers Date Payer Category Payer Self-pay [id number] 2024 Unknown [id number] Unknown [id number] Unknown [id number] Unknown [id number] [id number] Unknown [id number] Social History Date Type Detail Facility Start: 05-19-2022 End: 08-21-2023 Tobacco smoking status NHIS Unknown if ever smoked [facility] Start: 1960 Sex Assigned At Female [facility] NEGATED: Highlighted row [facility] Goals Date Patient Goal Desired Activity /State Mental Status Date Assessment Result Facility 08-21-2023 Cognitive function Voice/Name [facility] Work Phone: Clinical Notes 07-31-2021 to 08-21-2023 Note Date & Type Note Facility 08-21-2023 Procedure note [facility] 08-21-2023 Procedure note [facility] 05-25-2023 Note [facility] Pap Smear Specimen Adequacy May 25, 2023 11:59pm Comment . Satisfactory for evaluation. Endocervical component may not bedistinguished in cases of atrophy. Comment on above: Satisfactory for chata luation. Endocervical component may not bedistinguished in cases of atrophy. 10-24-2021 Note Patient Outreach (YOHAN NGUYỄN) EMMY HUTCHINS ([id number]) 1960 F Date Time Provider Department 10/24/21 VARSHA BURKS NETPIPEV During your visit today, we recorded the following information about you: Varsha Burks MA 10/24/2021 11:55 AM Signed POPULATION HEALTH NAVIGATION OUTREACH Action/FYI Attempted to contact patient, no answer and left message requesting a return call to update PCP and schedule Wellness Visit. Linqiahart message also sent. Contact made with patient or family member? NO Pt identified by name and : NO Outreach Outcome/Action Unable to reach patient: Left message MyChart message sent Reason for Outreach Attribution: Provider Off-boarding Payer: Payor: GINOEM / Plan: BLUE CARD PPO OOS / Product Type: PPO / Care Gap Reviewed:: Annual Wellness visit Colorectal Cancer Screening Flu vaccine Reminder: Reminder note to check Health Maintenance for items below Health Maintenance items due: HEPATITIS C SCREENING Never done HIV SCREENING Never done SHINGRIX VACCINE(1 of 2) Never done COLORECTAL CANCER SCREENING due on 02/18/2019 DEPRESSION SCREENING due on 04/14/2020 COVID-19 VACCINE(2 - Booster for Shawna series) due on 04/01/2021 INFLUENZA(1) Never done Advanced Directives Completed: Have you ever planned for future healthcare decisions with a power of attorney general, living will, or advance directives? Referrals: Message Sent to Practice: Navigation Signature: Varsha Burks MA October 24, 2021 11:54 AM Allergies As of Date: 10/24/2021 (No Known Allergies) Date Reviewed: 04/14/2019 Reviewed by: [facility] MANUELA Curtis - Fully Assessed Reason for Visit: Population Health Navigation Outreach [3910] Cmt: PCP Offboarding Problem List As Of Date 10/24/2021 Noted Resolved ADHD (attention deficit hyperactivity disorder)*01/01/2011 Encounter Status:Closed by VARSHA BURKS on 10/24/21 [facility] 10-24-2021 Note HNO ID: [id number] Author: Varsha Burks MA Service: ? Author Type: Microscopist Type: Progress Notes Filed: 10/24/2021 11:55 AM Note Text: POPULATION HEALTH NAVIGATION OUTREACH Action/FYI Attempted to contact patient, no answer and left message requesting a return call to update PCP and schedule Wellness Visit. Linqiahart message also sent. Contact made with patient or family member? NO Pt identified by name and : NO Outreach Outcome/Action Unable to reach patient: Left message MyChart message sent Reason for Outreach Attribution: Provider Off-boarding Payer: Payor: ANTHEM / Plan: BLUE CARD PPO OOS / Product Type: PPO / Care Gap Reviewed:: Annual Wellness visit Colorectal Cancer Screening Flu vaccine Reminder: Reminder note to check Health Maintenance for items below Health Maintenance items due: HEPATITIS C SCREENING Never done HIV SCREENING Never done SHINGRIX VACCINE(1 of 2) Never done COLORECTAL CANCER SCREENING due on 02/18/2019 DEPRESSION SCREENING due on 04/14/2020 COVID-19 VACCINE(2 - Booster for Shawna series) due on 04/01/2021 INFLUENZA(1) Never done Advanced Directives Completed: Have you ever planned for future healthcare decisions with a power of attorney general, living will, or advance directives? Referrals: Message Sent to Practice: Navigation Signature: Varsha Burks MA October 24, 2021 11:54 AM [facility] 07-31-2021 Note HNO ID: [id number] Author: Ping Minaya Service: ? Author Type: ? Type: Progress Notes Filed: 07/31/2021 3:08 PM Note Text: POPULATION HEALTH NAVIGATION OUTREACH Action/FYI Patient declined colonoscopy Contact made with patient or family member? YES Pt identified by name and : YES Outreach Outcome/Action Spoke to patient or caregiver: Patient declined Reason for Outreach Care Gap or Scheduling/Wellness visits Payer: Payor: ANTHEM / Plan: BLUE CARD PPO OOS / Product Type: PPO / Care Gap Reviewed:: Colorectal Cancer Screening Reminder: Reminder note to check Health Maintenance for items below Health Maintenance items due: HEPATITIS C SCREENING Never done HIV SCREENING Never done SHINGRIX VACCINE(1 of 2) Never done COLORECTAL CANCER SCREENING due on 02/18/2019 DEPRESSION SCREENING due on 04/14/2020 INFLUENZA(1) Never done Advanced Directives Completed: Have you ever planned for future healthcare decisions with a power of attorney general, living will, or advance directives? Referrals: Message Sent to Practice: Navigation Signature: Ping Minaya July 31, 2021 3:08 PM [facility] 07-31-2021 Note HNO ID: [id number] Author: Bruna Lundberg Service: ? Author Type: ? Type: Progress Notes Filed: 07/31/2021 2:57 PM Note Text: POPULATION HEALTH NAVIGATION OUTREACH Action/I Colorectal Cancer Screening- LM and sent [employer] message with call back number. Contact made with patient or family member? NO Pt identified by name and : NO Outreach Outcome/Action Unable to reach patient: Left message MyChart message sent Reason for Outreach Care Gap or Scheduling/Wellness visits Payer: Payor: ANTHEM / Plan: BLUE CARD PPO OOS / Product Type: PPO / Care Gap Reviewed:: Colorectal Cancer Screening Reminder: Reminder note to check Health Maintenance for items below Health Maintenance items due: HEPATITIS C SCREENING Never done HIV SCREENING Never done SHINGRIX VACCINE(1 of 2) Never done COLORECTAL CANCER SCREENING due on 02/18/2019 DEPRESSION SCREENING due on 04/14/2020 INFLUENZA(1) Never done Navigation Signature: Bruna Lundberg July 31, 2021 2:54 PM [facility] 07-31-2021 Note Patient Outreach (NE TNAV) EMMY HUTCHINS ([id number]) 1960 F Date Time Provider Department 07/31/21 PING MARINA During your visit today, we recorded the following information about you: Ping Minaya 07/31/2021 3:08 PM Signed POPULATION HEALTH NAVIGATION OUTREACH Action/ Patient declined colonoscopy Contact made with patient or family member? YES Pt identified by name and : YES Outreach Outcome/Action Spoke to patient or caregiver: Patient declined Reason for Outreach Care Gap or Scheduling/Wellness visits Payer: Payor: ANTHEM / Plan: BLUE CARD PPO OOS / Product Type: PPO / Care Gap Reviewed:: Colorectal Cancer Screening Reminder: Reminder note to check Health Maintenance for items below Health Maintenance items due: HEPATITIS C SCREENING Never done HIV SCREENING Never done SHINGRIX VACCINE(1 of 2) Never done COLORECTAL CANCER SCREENING due on 02/18/2019 DEPRESSION SCREENING due on 04/14/2020 INFLUENZA(1) Never done Advanced Directives Completed: Have you ever planned for future healthcare decisions with a power of attorney general, living will, or advance directives? Referrals: Message Sent to Practice: Navigation Signature: Ping Mniaya July 31, 2021 3:08 PM Allergies As of Date: 07/31/2021 (No Known Allergies) Date Reviewed: 04/14/2019 Reviewed by: [place] ([facility]) MANUELA Curtis - Fully Assessed Reason for Visit: Population Health Navigation Outreach [3910] Cmt: Deferred care Problem List As Of Date 07/31/2021 Noted Resolved ADHD (attention deficit hyperactivity disorder)*01/01/2011 Encounter Status:Closed by PING PEDRO on 07/31/21 [facility] 07-31-2021 Note Patient Outreach (NE TNAV) EMMY HUTCHINS ([id number]) 1960 F Date Time Provider Department 07/31/21 BRUNA SOLORZANO ([facility]) [place] During your visit today, we recorded the following information about you: Bruna Solorzano Pss 07/31/2021 2:57 PM Signed POPULATION HEALTH NAVIGATION OUTREACH Action/ Colorectal Cancer Screening- LM and sent [employer] message with call back number. Contact made with patient or family member? NO Pt identified by name and : NO Outreach Outcome/Action Unable to reach patient: Left message [employer] message sent Reason for Outreach Care Gap or Scheduling/Wellness visits Payer: Payor: ANTHEM / Plan: BLUE CARD PPO OOS / Product Type: PPO / Care Gap Reviewed:: Colorectal Cancer Screening Reminder: Reminder note to check Health Maintenance for items below Health Maintenance items due: HEPATITIS C SCREENING Never done HIV SCREENING Never done SHINGRIX VACCINE(1 of 2) Never done COLORECTAL CANCER SCREENING due on 02/18/2019 DEPRESSION SCREENING due on 04/14/2020 INFLUENZA(1) Never done Navigation Signature: Bruna Lundberg July 31, 2021 2:54 PM Allergies As of Date: 07/31/2021 (No Known Allergies) Date Reviewed: 04/14/2019 Reviewed by: [place] [facility] MANUELA Curtis - Fully Assessed Reason for Visit: Population Health Navigation Outreach [3910] Cmt: COLORECTAL CANCER SCREENING Problem List As Of Date 07/31/2021 Noted Resolved ADHD (attention deficit hyperactivity disorder)*01/01/2011 Encounter Status:Closed by BRUNA BRANDT on 07/31/21 [facility] Evaluation note Diagnosis Onset Date Encounter for routine gyneco logical examination noneactive [facility] Work Phone: Evaluation note* Diagnosis Onset Date Resolution Status Atrophic vaginitis acute Encounter for routine gynecological examination noneactive Encounter for screening for malignant neoplasm of colon acute [facility] Work Phone: History and physical note Author Deandre Doe [facility] August 21, 2023 10:37am Note Date/Time August 21, 2023 1 0:37am [facility] Medical Records Department [address] [place] [address] History & Physical Exam 08/21/23 1037 MR#: [id number] Acct: [id number] Name: EMMY HUTCHINS Rep #:[id number] : 1960 63 From: Deandre marquez MD PCP: Care Physician,No Primary Status :[facility] Location: [place] [address] HPI - General HPI Narrative EMMY HUTCHINS, is a 63 F who presents for screening colonoscopy. She has never had a colonoscopy in the past. She denies any abdominal pain or blood in the stool. She has no family history of colon cancer. [facility] Medical History (Updated 08/17/23 @ 09:59 by Hilda Mckenzie) ADD (attention deficit disorder) Former smoker Hx of vaginal delivery Post-menopausal Wears glasses Home Medications cholecalciferol (vitamin D3) 25 mcg (1,000 unit) capsule 25 mcg PO .QOD 07/14/23[History Last Taken Unknown] Allergy/AdvReac Type Severity Reaction Status Date / Time No Known Allergies Allergy Verified 08/21/23 09:45 Family History Mother Stomach disorder intenstine burst. infection GERD (gastroesophageal reflux disease) Cervical cancer Grandfather Cancer Surgical History (Updated 08/17/23 @ 09:57 by Hilda Mckenzie) Hx of tonsillectomy No pertinent past surgical history Social History household members: spouse current occupational status: employed current occupation: realtor Smoking Status: Former smoker Electronic Cigarette Use: not used alcohol intake: current alcohol intake frequency: holidays/special occasions only details: social substance use type: does not use caffeine: Yes what type of physical activity do you participate in: walking seatbelt use: always do you feel safe at home: Yes additional social history: [employer] Patient is a Realtor Past Medical/Surgical History Planned Operation Planned Operative Procedure/s: COLONOSCOPY-OA Previous Hospitalizations/Surgeries HX Hospitalizations: No Any Problems With Anesthesia: No You/Your Family Experience Fever (Hyperthermia) With Anes: No Cholinesterase deficiency: No Cardiovascular Hx Hypertension: No Respiratory Hx Sleep Apnea: No Hx Respiratory Tract Infection/Cold (presently): No Do You Snore Loudly (louder than talking or can be heard): Yes Do You Often Feel Tired/ Fatigued/ Sleepy Dring Daytime?: No Has Anyone Observed You Stop Breathing During Sleep?: No Result (for STOP score): Negative Smoking Status: Former smoker Neurological Does patient have nerve stimulator: No Reproduction : No Miscellaneous Recent Exposure to Contagious Disease: No Allergies No Known Allergies Allergy (Verified 08/21/23 09:45) Discharge Is Pt Admitted From a [facility], or a Senior Care: No After D/C, Where Do you Plan to Go: Return Home Vital Signs Vital Signs Vital Signs: 08/21/23 09:46 08/21/23 09:46 Temperature 97.6 F L Temperature Source Temporal Pulse Rate 70 Respiratory Rate 18 Respiratory Pattern Normal Blood Pressure 129/78 H Blood Pressure Mean 95 Blood Pressure Source Monitor Blood Pressure Position Sitting Blood Pressure Location Right Arm Pulse Ox 97 Oxygen Delivery Method Room Air Weight Weight: 165 lb 9.074 oz Body Mass Index (BMI) 25.2 Physical Exam Const alert and oriented x3 HEENT normocephalic Eyes PERRL Resp normal respiratory effort and normal air movement Cardio regular rate and regular rhythm GI soft to palpation, non-tender and non-distended Extremity normal to inspection Assessment & Plan Assessment/Plan (1) Encounter for screening for malignant neoplasm of colon: PLAN: I explained endoscopy in detail to the patient. I explained the risks including but not limited to stroke or heart attack with anesthesia, perforationof the GI tract, bleeding, infection. I explained that any of these could necessitate further emergency surgery. The patient understands and all questions were answered sufficiently. The patient wishes to proceed with procedure. Deandre Doe MD Pager: [facility] [address] [place] [address], [address] [place] [phone] Office: Surgery Risks - Colonoscopy Risks Include but are not Limited To: Risks include but are not limited to: Bleeding, perforation requiring further surgery, inability to complete colonoscopy requiring barium enema. 08/21/23 1037 <Electronically signed by Deandre Doe MD> Cosigner Signature (if applicable): CC: Dr. Deandre Doe MD; No Primary Care Physician~ Signed [facility] Work Phone: Summary Purpose Family History No Family History Records Found Relationship Condition Age at Onset Recorded Date/T richie mother Disorder of stomach Unknown Unknown Relationship Condition Age at Onset Recorded Date/T richie mother Disorder of stomach Unknown Unknown Gastroesophageal reflux disease Unknown Malignant neoplasm of cervix Unknown grandfather Malignant neoplasm Unknown Advance Directives No Advanced Directives Records Found Advance Directive Response Recorded Date/ Time Living Will No August 17 9:57am Power of Licensed Insurance Agent No August 17, 2023 9:57am Chief Complaint and Reason for Visit Chief Complaint SCREENING Annual (ORGAN GRINDER) Reason for Visit Encounter for routin e gynecological examination Chief Complaint SCREENING Annual (ORGAN GRINDER) Amb Documentation Reason for Visit Atrophic vaginitis Encounter for routine gynecological examination Encounter for screening for malignant neoplasm of colon Additional Source Comments INFORMATION SOURCE (unrecogn ized section and content) DATE CREATED AUTHOR 11/19/2021 [facility] DATE CREATED AUTHOR AUTHOR'S ORGANIZ ATION 06/03/2025 [facility] Goals (unrecognized section and content) Goals may be documented in a n alternate section Care Teams (unrecognized sec tion and content) Team Status: Active Member Role Status Dates Dr. Josiah Sadler III, MD Family Provider Active No Primary Care Physician Primary Care Provider Active Team Status: Inactive Member Role Status Dates No Primary Care Physician Primary Care Provider, Refer ring Provider Active Alejandra Titus DIRECTOR CORRECTIONAL AGENCY, DIRECTOR CORRECTIONAL AGENCY-C Attending Provider Active Team Status: Active Member Role Status Dates No Primary Care Physician Primary Care Provider Active Judy Gastelum Attending Provider Active Team Status: Active Member Role Status Dates No Primary Care Physician Primary Care Provider, Refer ring Provider Active Dr. Deandre Doe MD Attending Provider, Other Provider Active Alejandra Titus DIRECTOR CORRECTIONAL AGENCY, DIRECTOR CORRECTIONAL AGENCY-C Other Provider Active Team Status: Inactive Member Role Status Dates No Primary Care Physician Primary Care Provider Active Alejandra Titus DIRECTOR CORRECTIONAL AGENCY, DIRECTOR CORRECTIONAL AGENCY-C Attending Provider, Referring Provider Active Team Status: Inactive Member Role Status Dates No Primary Care Physician Primary Care Provider, Refer ring Provider Active Dr. Deandre Doe MD Attending Provider Active Alejandra Titus DIRECTOR CORRECTIONAL AGENCY, DIRECTOR CORRECTIONAL AGENCY-C Other Provider Active FOR RECORDS PERTAINING TO PATIENTS WHO ARE OR HAVE BEEN ENROLLED IN A CHEMICAL DEPENDENCY/SUBSTANCEABUSE PROGRAM, SOME INFORMATION MAY BE OMITTED. This clinical summary was aggregated from multiple sources. Caution should be exercised in using it in the provision of clinical care. This summary normalizes information from multiple sources, and as a consequence, information in this document may materially change the coding, format and clinical context of patient data. In addition, data may be omitted in some cases. CLINICAL DECISIONS SHOULD BE BASED ON THE PRIMARY CLINICAL RECORDS. [employer] provides no warranty or guarantee of the accuracy or completeness of information in this document.
--- NOTE | 2025-06-05 07:45 | BI_ITS ---
EXAM: SCRN MAMM (CAD)W/MARIA ESTHER BILAT DATE: 06/05/2025 CLINICAL HISTORY: F, Age 65 y/o , SCREENING FOR BREAST CANCER TECHNIQUE: SCRN MAMM (CAD)W/MARIA ESTHER BILAT COMPARISON: Prior exam(s) dated 06/02/2024, 05/25/2023, and 05/19/2022. FINDINGS: TISSUE DENSITY: There are scattered areas of fibroglandular density. Bilateral Breast Mammographic Findings: Benign-appearing round calcifications are seen in the right breast. A 1 cm stable density in the superior, far posterior aspect of the left breast is noted. No suspicious masses, suspicious cluster of microcalcifications, architectural distortion or secondary sign of malignancy is identified in either breast. BI/SCRN MAMM (CAD)W/MARIA ESTHER BILAT IMPRESSION: No mammographic signs of malignancy. Routine yearly mammograms recommended. OVERALL FINAL ASSESSMENT BI-RADS 2: BENIGN RECOMMENDATION: Routine annual follow-up in 1 Year A letter with findings and recommendations will be mailed to the patient. Reading Location: [id number]
[2025-06-05 13:20] LABS: AST(SGOT) 19 U/L (<=31); Alanine Aminotransfer ALT/SGPT 14 U/L (<=34); Albumin, Serum 4.7 g/dL (3.4-4.8); Alkaline Phosphatase 74 U/L (35-104); Anion Gap 13 (5-15); BUN 8 mg/dL (4-19); BUN/Creat Ratio 8.8 RATIO (10-20); Calcium,Total 9.9 mg/dL (7.6-11.0); Carbon Dioxide 24.2 mmol/L (21.0-32.0); Chloride 103 mmol/L (98-108); Cholesterol 225 mg/dL (<=200); Globulin 2.7 g/dL (2.2-4.2); Glucose 94 mg/dL (70-99); Low Density Lipoprotein Calc. 127 mg/dL; Potassium 4.2 mmol/L (3.3-5.1); Triglycerides 66 mg/dL; Very Low Density Lipoprotein 13 mg/dL (5-40); Vitamin D,25 Hydroxy 27.7 ng/mL (30-100); cholesterol:hdl ratio screen 2.66
== END | disposition home or self-care (01) ==
PROVIDERS: PCP Internal Medicine; Referring Provider Nurse Practitioner Women's Health; Visit Provider Nurse Practitioner Women's Health
DX: Z12.31 Encounter for screening mammogram for malignant neoplasm of breast (principal); R03.0 Elevated blood-pressure reading, without diagnosis of hypertension; N95.2 Postmenopausal atrophic vaginitis; Z13.220 Encounter for screening for lipoid disorders
CPT/HCPCS: 36415; 77063; 77067; 80053; 80061; 82306; 84443